=== PATIENT | male | born 1970 | race Caucasian/White ===

== ENCOUNTER → 2018-10-31 | Outpatient (CLI) | payer OTHER | LOC: BMCIMAGING 11:41 | PROVIDERS: ATTEND Orthopaedic Surgery Hand Surgery | DX: M25.521 Pain in right elbow (principal); M19.021 Primary osteoarthritis, right elbow ==

== ENCOUNTER → 2018-11-20 | Outpatient (CLI) | payer BC | LOC: CIMAGING 11:21 | PROVIDERS: ATTEND Orthopaedic Surgery Hand Surgery | DX: M19.021 Primary osteoarthritis, right elbow (principal); M89.38 Hypertrophy of bone, other site | CPT/HCPCS: 73200-PO ==